=== PATIENT | male | born 1945 | race Caucasian/White ===

== ENCOUNTER 2019-01-13 15:14 | Inpatient (IN) ==
[2019-01-13] MEDS ORDERED: Naloxone 0.4 MG/ML INJ IVP PRN (16:58)
[2019-01-13] MEDS ORDERED: *HR* OxyCODONE/APAP 5/325 TABLET PO PRN (17:03)
[2019-01-13] MEDS ORDERED: D5% in Water 1,000 ML IVC PRN (17:15)
[2019-01-13] MEDS ORDERED: Dextrose Gel 15 GM/37.5 ML TUBE PO PRN ×2 (17:15)
[2019-01-13] MEDS ORDERED: *HR* Dextrose 50 % in Water (Syg) 50 ML SYRINGE IVP PRN (17:15)
[2019-01-13] MEDS ORDERED: Insulin LISPRO 300 UNITS/3 ML VIAL SQ SCH (17:15)
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
[2019-01-13] MEDS ORDERED: traMADol 50 MG TABLET PO PRN (17:44)
[2019-01-13 17:54] LABS: Basophils # 0.1 K/mcL (0.0-0.2); Basophils % 0.4 %; Eosinophils % 0.1 %; Hematocrit 48.8 % (37.5-50.1); Hemoglobin 16.2 g/dL (12.9-16.9); Immature Granulocytes % 0.7 % (0-4); Lymphocytes # 2.5 K/mcL (0.6-4.6); Lymphocytes % 12.2 %; Mean Corpuscular HGB Conc 33.2 g/dL (31.6-35.5); Mean Corpuscular Hemoglobin 28.5 pg (28.0-33.3); Mean Corpuscular Volume 85.9 fL (83.0-100.0); Mean Platelet Volume 9.7 fL (9.4-12.4); Monocytes # 1.9 K/mcL (0.0-1.3); Monocytes % 9.3 %; Neutrophils # 15.6 K/mcL (1.6-8.9); Platelet Count 224 K/mcL (140-400); Red Blood Count 5.68 M/mcL (4.19-5.50); Red Cell Distribution Width 13.7 % (11.5-14.5); Segmented Neutrophils % 77.3 %; White Blood Count 20.2 K/mcL (4.3-11.1)
[2019-01-13] MEDS ORDERED: cefTRIAXone 1,000 MG in Water for inj. (sterile) 10 ML IVP SCH (18:00)
[2019-01-13] MEDS: 0.9 % Sodium Chloride 1,000 ML IVC SCH (18:13)
[2019-01-13 18:14] LABS: BUN/Creatinine Ratio 23 (6-26); Blood Urea Nitrogen 29 mg/dL (8-23); Calcium 8.6 mg/dL (8.6-10.3); Carbon Dioxide 22 mEq/L (23-29); Chloride 101 mEq/L (98-107); Glucose 135 mg/dL (70-105); Osmolality,Calculated 292 (280-300); Potassium 3.7 mEq/L (3.5-5.1); Sodium 137 mEq/L (136-145); eGFR For African Americans > 60 (> 60); eGFR For Non-African Americans 57 (> 60)
[2019-01-13] MEDS ORDERED: Acetaminophen IV 1,000 MG/100 ML INFUS..BTL IVPB ONE (23:51)
[2019-01-14 00:28] LABS: Basophils # 0.1 K/mcL (0.0-0.2); Basophils % 0.3 %; Eosinophils % 0.1 %; Hematocrit 48.1 % (37.5-50.1); Hemoglobin 15.9 g/dL (12.9-16.9); Immature Granulocytes % 0.7 % (0-4); Lymphocytes # 3.5 K/mcL (0.6-4.6); Lymphocytes % 14.5 %; Mean Corpuscular HGB Conc 33.1 g/dL (31.6-35.5); Mean Corpuscular Hemoglobin 28.6 pg (28.0-33.3); Mean Corpuscular Volume 86.5 fL (83.0-100.0); Monocytes # 2.6 K/mcL (0.0-1.3); Monocytes % 10.9 %; Neutrophils # 17.5 K/mcL (1.6-8.9); Platelet Count 225 K/mcL (140-400); Red Blood Count 5.56 M/mcL (4.19-5.50); Red Cell Distribution Width 13.9 % (11.5-14.5); Segmented Neutrophils % 73.5 %; White Blood Count 23.8 K/mcL (4.3-11.1)
[2019-01-14 00:47] LABS: Calcium 8.7 mg/dL (8.6-10.3); Magnesium 1.8 mg/dL (1.6-2.6); Phosphorous 3.1 mg/dL (2.7-4.5); Potassium 3.8 mEq/L (3.5-5.1)
[2019-01-14] MEDS: 0.9 % Sodium Chloride 1,000 ML IVC SCH ×3 (02:22→21:51)
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
[2019-01-14] MEDS ORDERED: *HR* Midazolam HCl 2 MG/2 ML VIAL ONE (08:27)
[2019-01-14] MEDS ORDERED: *HR* FentaNYL (PF) 100 MCG/2 ML VIAL ONE (08:27)
[2019-01-14] MEDS ORDERED: *HR* Propofol 200 MG/20 ML VIAL IVP ONE (08:28)
--- NOTE | 2019-01-14 08:28 | Anesthesia Evaluation PreOp ---
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 Any Significant HX Other Medical History: Renal (kidney sones), Diabetes Type II Anesthesia History: No Prior Anesthetic Complications, Past Anesthesia Alcohol Use: none Drug use: none Medications and Allergies Allergy/AdvReac Type Severity Reaction Status Date / Time zoster vaccine live Allergy Rash Verified 01/13/19 17:11 bee venom protein (honey bee) AdvReac Swelling Verified 01/13/19 17:12 of Lip/Tongue/Throat Tetanus Vaccines and Toxoid AdvReac Swelling Verified 01/13/19 17:11 of the Eye - Meds/Allergy Pre-op Review Medications Reviewed: Yes Allergies Reviewed: Yes Beta Blockers on Current Med List: No Anesthesia Results - Labs 01/14/19 00:19 01/14/19 00:19 Anesthesia Exam Vital Signs/O2 Sat/Glucose, Most Recent Temp Pulse Resp BP Pulse Ox 99.5 F 85 17 102/68 92 01/14/19 06:49 01/14/19 06:49 01/14/19 06:49 01/14/19 06:49 01/14/19 06:49 Blood Glucose* 161 Height: 5'9''/1.75m Weight: 221 lbs/100.4 kg NPO (# of Hours): 8 Pain Scale: 0 Pain Scale Used: Numeric (1 - 10) - HEENT Pupil (Motor): EOMI Mallampati: III Teeth: Normal (multiple chipped teeth) Oral Opening: Greater than 3 - FORM STRIPPER LOC: Oriented FORM STRIPPER Motor: Normal RUE, Normal LUE, Normal RLE, Normal LLE, Normal Face FORM STRIPPER Sensory: Normal: RUE, LUE, RLE, LLE, Face - Cardiac Rhythm: Regular Murmur: None - Pulmonary Breath Sounds: bilateral Clear Respiratory Effort: Symmetrical Anesthesia Assess/Plan ASA Score: 3 Level of consciousness: Cooperative, Oriented, Tranquil Anesthetic Plan: General Monitoring Plan: Standard Monitors Recovery Plan: PACU
[2019-01-14] MEDS ORDERED: *HR* HYDROmorphone (PF) 1 MG/ML SYRINGE IVP PRN (08:39)
[2019-01-14] MEDS ORDERED: *HR* Promethazine 25 MG/ML VIAL IVP PRN (08:39)
--- NOTE | 2019-01-14 08:55 | Internal Med Progress Note ---
Hospitalist Progress Note - Encounter Date of Encounter: 01/14/19 Time of Encounter: 08:50 - Subjective Interval History: No acute events overnight - Exam Vitals: Temp Pulse Resp BP Pulse Ox 99.5 F 85 17 102/68 92 01/14/19 06:49 01/14/19 06:49 01/14/19 06:49 01/14/19 06:49 01/14/19 06:49 Exam: General appearance: Present: A&O X 3, no acute distress Head exam: Present: normocephalic Respiratory exam: Present: CTAB. Absent: accessory muscle use, rales, rhonchi, wheezes Cardiovascular exam: Present: RRR, +S1, +S2. Absent: diastolic murmur, gallop, rubs, systolic murmur GI/Abdominal exam: Soft, NT, ND, +BS Extremities exam: Absent: pedal edema Neurological exam: Present: alert, oriented X3, no focal deficits. Absent: altered - Assessment and Plan (1) Sepsis Current Visit: Yes Status: Acute Assessment and Plan: Pt comes in with tachycardia, leukocytosis of 18 and fevers with multiple WBC in urine and kidney stones Has sepsis likely 2/2 to pyelonephritis and MRSA bacteremia. Continue on vancomycin and ceftriaxone. Obtain 2D echo. repeat blood cultures ID recs appreciated (2) Nephrolithiasis Current Visit: Yes Status: Acute Assessment and Plan: CT abdomen showed 2 stones in left ureter. Continue IV fluids Urology consulted and plan for cystoscopy and stent placement (3) MRSA bacteremia Current Visit: Yes Status: Acute Assessment and Plan: See #1. Continue vancomycin. Obtain echo (4) Acute pyelonephritis Current Visit: Yes Status: Acute Assessment and Plan: See#1. Urology consulted. Continue fluids and antibiotics (5) Acute kidney injury Current Visit: Yes Status: Acute Assessment and Plan: Creatinine was 1.42. Continue IV fluids. Monitor creatinine. No baseline creatinine to compare to determine if he has CKD (6) Diabetes Current Visit: Yes Status: Acute Assessment and Plan: Continue insulin and monitor fingersticks (7) DVT prophylaxis Current Visit: Yes Status: Acute Assessment and Plan: heparin sc - Time Spent with Patient Total time spent is greater than 50% in coordination of care (as documented) at patient's floor/unit and/or counseling patient: Internal Medicine: Result - Labs CBC & Chem 7: 01/14/19 00:19 01/14/19 00:19 Labs: Short CBC 01/13/19 01/14/19 Range/Units 17:20 00:19 WBC 20.2 H 23.8 H (4.3-11.1) K/mcL Hgb 16.2 15.9 (12.9-16.9) g/dL Hct 48.8 48.1 (37.5-50.1) % Plt Count 224 225 (140-400) K/mcL Neutrophils # 15.6 H 17.5 H (1.6-8.9) K/mcL BMP 01/13/19 01/14/19 17:20 00:19 Sodium 137 138 Potassium 3.7 3.8 Chloride 101 98 Carbon Dioxide 22 L 29 BUN 29 H 26 H Creatinine 1.25 1.46 H Glucose 135 H 138 H Calcium 8.6 8.7 Consult Discharge Plan - Plan Referrals: Gee Lyles MD [Primary Care Provider] - (1) Sepsis Qualifiers: Sepsis type: methicillin resistant Staphylococcus aureus Qualified Code(s): A41.02 - Sepsis due to Methicillin resistant Staphylococcus aureus (6) Diabetes Qualifiers: Diabetes mellitus type: type 2 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
[2019-01-14] MEDS ORDERED: Aspirin 81 MG TAB.CHEW PO SCH (09:00)
[2019-01-14] MEDS ORDERED: Lidocaine -MPF 2% 2 ML VIAL ONE (09:02)
[2019-01-14] MEDS ORDERED: Ondansetron 4 MG/2 ML VIAL ONE (09:02)
--- NOTE | 2019-01-14 09:20 | Operative Note ---
Date of procedure: 01/14/19 Pre-op diagnosis: left ureteral stones and fever Post-op diagnosis: same Procedure: Cystoscopy and left 6 x 26 cm ureteral stent placement Anesthesia: GETA Surgeon: Roque Molina Was there an assistant news director present: No Estimated blood loss (cc): 0 Specimen: none Condition: stable Disposition: PACU Procedure in Detail: Patient was prepped and draped in normal sterile fashion. Timeout procedure performed. I then inserted the cystoscope into the patient's bladder. The bladder showed marked inflammation. I was then able to cannulate the left ureteral orifice using a Glidewire. At this point I then was able to place a 6 x 26 cm stent with good curl seen in the left kidney and in the bladder. Patient was taken to PACU in stable condition after the bladder was drained.
--- NOTE | 2019-01-14 09:50 | Anesthesia Evaluation Post Op ---
Date of Encounter: 01/14/19 Time of Encounter: 09:50 - Lungs Lungs: Clear Ascult./Percussion - Airway Airway: Non-obstructed - Cardiovascular Regular Rate - Mental Status Mental Status: Alert & Oriented, Answers Appropriately - Pain Pain Scale: 0 Pain Scale used: Numeric (1 - 10) - Nausea Vomiting Nausea Vomiting: Not Present - Hydration Hydration: Tolerates oral liquids - Discharge PostOp Status: Transfer Patient to floor
[2019-01-14] MEDS ORDERED: Naloxone 0.4 MG/ML INJ IVP PRN (10:02)
[2019-01-14] MEDS ORDERED: traMADol 50 MG TABLET PO PRN (10:02)
[2019-01-14] MEDS ORDERED: D5% in Water 1,000 ML IVC PRN (10:02)
[2019-01-14] MEDS ORDERED: *HR* Dextrose 50 % in Water (Syg) 50 ML SYRINGE IVP PRN (10:02)
[2019-01-14] MEDS ORDERED: Dextrose Gel 15 GM/37.5 ML TUBE PO PRN ×2 (10:02)
[2019-01-14] MEDS ORDERED: *HR* OxyCODONE/APAP 5/325 TABLET PO PRN (10:02)
[2019-01-14 10:56] LABS: Acinetobacter baumannii by PCR Not Detected (Not Detect); Candida albicans by PCR Not Detected (Not Detect); Candida glabrata by PCR Not Detected (Not Detect); Candida krusei by PCR Not Detected (Not Detect); Candida parapsilosis by PCR Not Detected (Not Detect); Candida tropicalis by PCR Not Detected (Not Detect); Enterobacter cloacae Cmplx PCR Not Detected (Not Detect); Enterobacteriaceae by PCR Not Detected (Not Detect); Enterococcus by PCR Not Detected (Not Detect); Escherichia coli by PCR Not Detected (Not Detect); Klebsiella oxytoca by PCR Not Detected (Not Detect); Klebsiella pneumoniae by PCR Not Detected (Not Detect); Proteus by PCR Not Detected (Not Detect); Pseudomonas aeruginosa by PCR Not Detected (Not Detect); Serratia marcescens by PCR Not Detected (Not Detect); Staphylococcus aureus by PCR DETECTED (Not Detect); Staphylococcus by PCR DETECTED (Not Detect); Streptococcus agalactiae(B)PCR Not Detected (Not Detect); Streptococcus by PCR Not Detected (Not Detect); Streptococcus pneumoniae PCR Not Detected (Not Detect); Streptococcus pyogenes (A) PCR Not Detected (Not Detect); mecA Methicillin-Resist Gene DETECTED (Not Detect)
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
[2019-01-14] MEDS: Insulin LISPRO 300 UNITS/3 ML VIAL SQ SCH ×2 (12:11→16:23)
[2019-01-14 12:59] LABS: Estimated Average Glucose 180 mg/dl
[2019-01-14] MEDS: cefTRIAXone 2,000 MG in Water for inj. (sterile) 20 ML IVP SCH (17:33)
[2019-01-14] MEDS ORDERED: cefTRIAXone 1,000 MG in Water for inj. (sterile) 10 ML IVP SCH (18:00)
[2019-01-14] MEDS ORDERED: Acetaminophen 325 MG TABLET PO ONE (23:14)
[2019-01-15] MEDS: 0.9 % Sodium Chloride 1,000 ML IVC SCH ×2 (04:34→16:47)
[2019-01-15 06:22] LABS: BUN/Creatinine Ratio 19 (6-26); Blood Urea Nitrogen 21 mg/dL (8-23); Calcium 7.9 mg/dL (8.6-10.3); Carbon Dioxide 22 mEq/L (23-29); Chloride 105 mEq/L (98-107); Glucose 92 mg/dL (70-105); Magnesium 1.8 mg/dL (1.6-2.6); Osmolality,Calculated 287 (280-300); Phosphorous 2.3 mg/dL (2.7-4.5); Potassium 3.7 mEq/L (3.5-5.1); Sodium 137 mEq/L (136-145); eGFR For African Americans > 60 (> 60); eGFR For Non-African Americans > 60 (> 60)
[2019-01-15 07:23] LABS: Basophils # 0.1 K/mcL (0.0-0.2); Basophils % 0.7 %; Eosinophils # 0.3 K/mcL (0.0-0.6); Eosinophils % 1.8 %; Hematocrit 46.2 % (37.5-50.1); Hemoglobin 15.3 g/dL (12.9-16.9); Immature Granulocytes % 0.7 % (0-4); Lymphocytes % 18.4 %; Mean Corpuscular HGB Conc 33.1 g/dL (31.6-35.5); Mean Corpuscular Hemoglobin 28.7 pg (28.0-33.3); Mean Corpuscular Volume 86.5 fL (83.0-100.0); Mean Platelet Volume 10.3 fL (9.4-12.4); Monocytes # 1.7 K/mcL (0.0-1.3); Monocytes % 10.6 %; Platelet Count 196 K/mcL (140-400); Red Blood Count 5.34 M/mcL (4.19-5.50); Red Cell Distribution Width 13.6 % (11.5-14.5); Segmented Neutrophils % 67.8 %; White Blood Count 16.3 K/mcL (4.3-11.1)
[2019-01-15] MEDS: Insulin LISPRO 300 UNITS/3 ML VIAL SQ SCH ×3 (07:30→16:48)
[2019-01-15] MEDS: Aspirin 81 MG TAB.CHEW PO SCH (09:49)
--- NOTE | 2019-01-15 09:54 | Internal Med Progress Note ---
Hospitalist Progress Note - Encounter Date of Encounter: 01/15/19 Time of Encounter: 09:00 - Subjective Interval History: No acute events overnight - Exam Vitals: Temp Pulse Resp BP Pulse Ox 98.2 F 84 18 124/70 96 01/15/19 06:39 01/15/19 06:39 01/15/19 06:39 01/15/19 06:39 01/15/19 06:39 Exam: General appearance: Present: A&O X 3, no acute distress Head exam: Present: normocephalic Respiratory exam: Present: CTAB. Absent: accessory muscle use, rales, rhonchi, wheezes Cardiovascular exam: Present: RRR, +S1, +S2. Absent: diastolic murmur, gallop, rubs, systolic murmur GI/Abdominal exam: Soft, NT, ND, +BS Extremities exam: Absent: pedal edema Neurological exam: Present: alert, oriented X3, no focal deficits. Absent: altered - Assessment and Plan (1) Sepsis Current Visit: Yes Status: Acute Assessment and Plan: Pt comes in with tachycardia, leukocytosis of 18 and fevers with multiple WBC in urine and kidney stones Has sepsis likely 2/2 to MRSA bacteremia. Continue on vancomycin and ceftriaxone. Obtain 2D echo. repeat blood cultures ID recs appreciated (2) Nephrolithiasis Current Visit: Yes Status: Acute Assessment and Plan: CT abdomen showed 2 stones in left ureter. Continue IV fluids Urology consulted and patient is s/p cystoscopy and stent placement (3) MRSA bacteremia Current Visit: Yes Status: Acute Assessment and Plan: See #1. Continue vancomycin. Obtain echo (4) Acute kidney injury Current Visit: Yes Status: Acute Assessment and Plan: Creatinine was 1.42. Continue IV fluids. Monitor creatinine. No baseline cr eatinine to compare to determine if he has CKD Resolved with fluids (5) Diabetes Current Visit: Yes Status: Acute Assessment and Plan: Continue insulin and monitor fingersticks (6) DVT prophylaxis Current Visit: Yes Status: Acute Assessment and Plan: heparin sc - Time Spent with Patient Total time spent is greater than 50% in coordination of care (as documented) at patient's floor/unit and/or counseling patient: Internal Medicine: Result - Labs CBC & Chem 7: 01/15/19 07:08 01/15/19 05:28 Labs: Short CBC 01/15/19 Range/Units 07:08 WBC 16.3 H (4.3-11.1) K/mcL Hgb 15.3 (12.9-16.9) g/dL Hct 46.2 (37.5-50.1) % Plt Count 196 (140-400) K/mcL Neutrophils # 11.0 H (1.6-8.9) K/mcL BMP 01/15/19 05:28 Sodium 137 Potassium 3.7 Chloride 105 Carbon Dioxide 22 L BUN 21 Creatinine 1.10 Glucose 92 Calcium 7.9 L Consult Discharge Plan - Plan Referrals: Gee Lyles MD [Primary Care Provider] - (1) Sepsis Qualifiers: Sepsis type: methicillin resistant Staphylococcus aureus Qualified Code(s): A41.02 - Sepsis due to Methicillin resistant Staphylococcus aureus (5) Diabetes Qualifiers: Diabetes mellitus type: type 2 Diabetes mellitus skilled nursing insulin use: without skilled nursing use Diabetes mellitus complication status: without complication Qualified Code(s): E11.9 - Type 2 diabetes mellitus without complications
--- NOTE | 2019-01-15 10:02 | Urology Progress Note ---
Date of Encounter: 01/15/19 Time of Encounter: 10:00 - Assessment and Plan (1) Nephrolithiasis Current Visit: Yes Status: Acute Assessment and plan: Patient will be scheduled for left ureteroscopic stone extraction in 2-3 weeks. No need for follow-up in urology office (2) Sepsis Current Visit: Yes Status: Acute Assessment and plan: Continue with treatment per infectious disease. Qualifiers: Sepsis type: methicillin resistant Staphylococcus aureus Qualified Code(s): A41.02 - Sepsis due to Methicillin resistant Staphylococcus aureus Progress Note Narrative: Patient seen this morning. Patient feeling better today states he had a worst a yesterday. Patient's blood cultures positive 2 for gram-positive cocci. Infectious disease on board. Objective Initial Vital Signs Temp Pulse Resp BP Pulse Ox 100.2 F H 111 18 130/73 91 01/13/19 17:23 01/13/19 17:23 01/13/19 17:23 01/13/19 17:23 01/13/19 17:23 General/Neuological: alert and oriented x 3 Eyes: normal pupils, non-icteric Neck: no lymphadenopathy noted, supple to touch ABD: soft, nontender, no masses palpated, good bowel sounds Back: no pain on percussion bilaterally Skin: no rashes noted Musculoskeletal: normal gait, FROMx4 - Labs 01/15/19 07:08 01/15/19 05:28 Diabetes panel 01/13/19 01/15/19 Range/Units 17:20 05:28 Sodium 137 (136-145) mEq/L Potassium 3.7 (3.5-5.1) mEq/L Chloride 105 (98-107) mEq/L Carbon Dioxide 22 L (23-29) mEq/L BUN 21 (8-23) mg/dL Creatinine 1.10 (0.70-1.30) mg/dL Glucose 92 (70-105) mg/dL Hemoglobin A1c 7.9 H ( - 5.6) % Calcium 7.9 L (8.6-10.3) mg/dL Calcium panel 01/15/19 Range/Units 05:28 Calcium 7.9 L (8.6-10.3) mg/dL Phosphorus 2.3 L (2.7-4.5) mg/dL Pituitary panel 01/15/19 Range/Units 05:28 Sodium 137 (136-145) mEq/L Potassium 3.7 (3.5-5.1) mEq/L Chloride 105 (98-107) mEq/L Carbon Dioxide 22 L (23-29) mEq/L BUN 21 (8-23) mg/dL Creatinine 1.10 (0.70-1.30) mg/dL Glucose 92 (70-105) mg/dL Calcium 7.9 L (8.6-10.3) mg/dL Adrenal panel 01/15/19 Range/Units 05:28 Sodium 137 (136-145) mEq/L Potassium 3.7 (3.5-5.1) mEq/L Chloride 105 (98-107) mEq/L Carbon Dioxide 22 L (23-29) mEq/L BUN 21 (8-23) mg/dL Creatinine 1.10 (0.70-1.30) mg/dL Glucose 92 (70-105) mg/dL Calcium 7.9 L (8.6-10.3) mg/dL Consult Discharge Plan - Plan Referrals: Gee Lyles MD [Primary Care Provider] -
--- NOTE | 2019-01-15 13:42 | Infectious Disease Progress No ---
ID Progress Note Date of Encounter: 01/15/19 Time of Encounter: 12:05 - Subjective Subjective: Patient seen and examined. No acute events noted overnight. Patient states overall he feels pretty well this morning. Reports some fevers overnight, but denies chills or rigors. Denies chest pain, shortness of breath, or cough. Denies nausea, vomiting, diarrhea, or constipation. Denies abdominal pain. Denies back or flank pain. Does report some dysuria. Denies oral thrush or skin rashes. - Objective CBC & Chem 7: 01/16/19 04:45 01/16/19 04:45 - Exam Vitals: Temp Pulse Resp BP Pulse Ox 98.2 F 98 16 157/85 96 01/15/19 11:33 01/15/19 11:33 01/15/19 11:33 01/15/19 11:33 01/15/19 11:33 Exam: Head: Atraumatic, normal inspection, normocephalic. Eye: EOMI, PERRLA, no scleral icterus noted. No subconjunctival hemorrhage noted. ENT: Mucous membranes moist. No odontogenic infection noted. Neck: Normal inspection, no meningismus. Respiratory: Clear to auscultation. No rales, respiratory distress, rhonchi, or wheezes noted. Cardiovascular: Regular rate and rhythm, S1 and S2 audible. No murmurs, rubs, or gallops. GI: Soft, nondistended, normal bowel sounds. Extremities:No joint swelling, pedal edema, or tenderness noted. Back: Normal inspection. No vertebral tenderness noted. No CVA tenderness noted. Neurological: Alert, oriented 3, no focal deficits. Psychiatric: normal affect, normal mood. Skin: Dry, intact, warm. Normal color. No rashes. No endocarditis stigmata noted. - Assessment and Plan (1) Sepsis Current Visit: Yes Status: Acute The patient has three sepsis criteria. Likely secondary to pyelonephritis and bacteremia. WBC remains elevated. Tachycardia resolved. Afebrile this morning. Blood cultures drawn at [place] are postitive 1/2 for GPC. Blood cultures drawn 01/13/19 at [facility] are positive 2/2 for GPC, PCR picked up MRSA. Repeat blood cultures drawn 01/15/19 are pending 2 sets. Qualifiers: Sepsis type: methicillin resistant Staphylococcus aureus Qualified Code(s): A41.02 - Sepsis due to Methicillin resistant Staphylococcus aureus SNOMED Code(s): 13436117 (2) Bacteremia Current Visit: Yes Status: Acute Causative organism: MRSA. Source: Unclear. Index of suspicion that the UTI and kidney stones are actually an incidental finding and are not related to the MRSA bacteremia since the urine culture from [place] is not growing anything at this point. The patient does not have any open sores or lesions. He is not an IV drug user. He does report several mosquito bites that he has been scratching, but denies having any of them appear infected and I do not see any on exam, but the patient is technically immunocompromised due to asplenia. Blood cultures drawn 01/13/19 at [place] +1 out of 2 sets for GPC's. Blood cultures drawn 01/13/19 at [facility] are +2 out of 2 sets for GPC's. The PCR did pickling grader MRSA. Repeat blood cultures drawn 01/15/19 are intact sets. No endocarditis stigmata noted. No prosthetic hardware or pacemaker. Rheumatoid factor elevated. Transthoracic echocardiogram negative for valvular vegetations. The patient has one major and 2 minor Modified Trinh's criteria. Currently on IV Vancomycin. SNOMED Code(s): 2433245 (3) Acute pyelonephritis Current Visit: Yes Status: Acute Causative organism: Unclear, possibly MRSA given blood culture results. The patient reported left flank pain on admission, but no pyelonephritis noted on CT. Urology consulted. Status post cystoscopy with left ureteral stent placement 01/14/[address] Molina. Urine culture was mixed organisms. Currently on Vanc and Rocephin. SNOMED Code(s): 00874318 (4) Acute kidney injury Current Visit: Yes Status: Resolved Likely secondary to sepsis and hydronephrosis. Serum creatinine normalized. Continue to trend. Dose-adjust medications and avoid nephrotoxins as able. SNOMED Code(s): 73923918, 57979837 (5) Nephrolithiasis Current Visit: Yes Status: Acute Noted on CT scan at [place]. Urology consult. Status post cystoscopy with left ureteral stent placement 01/14/19. Planned for staged removal of kidney stone at some point. SNOMED Code(s): 64453359 (6) Enlarged prostate Current Visit: Yes Status: Chronic Follows with [facility]. SNOMED Code(s): 161771579 (7) Diabetes Current Visit: Yes Status: Acute Recommend aggressive glucose monitoring and control. Management per the primary team. Qualifiers: Diabetes mellitus type: type 2 Diabetes mellitus termite control representative insulin use: without senior living use Diabetes mellitus complication status: without complication Qualified Code(s): E11.9 - Type 2 diabetes mellitus without complications SNOMED Code(s): 70558044 - Recommendations Recommendations: Await repeat blood cultures. Await final ID and sensitivities on blood cultures. Recommend JARVIS prior to discharge. Continue vancomycin IV. Pharmacy to dose. Goal trough approximately 15. Continue Rocephin 2 g IV daily. Duration of treatment depends on the clinical picture. Monitor renal function and for drug toxicity and dose adjust antibiotics. Contact precautions per hospital policy. Avoid insertion of long-term IV access until repeat blood cultures are negative for 48 hours. services program manager to assist with discharge planning. Consult Discharge Plan - Plan Referrals: Gee Lyles MD [Primary Care Provider] - - Attending Attestation I have personally performed a face to face evaluation on this patient. I have reviewed and agree with the care plan. History and Exam by me shows: Assessment and plan: 1.Sepsis 2.MRSA bacteremia 2/2 sets positive 01/13/2019 source not clear 3.Acute pyelonephritis causative organism not clear 4.Acute kidney injury 5.Nephrolithiasis 6.Large prostate 7.Diabetes mellitus type 2 Recommendations Repeat blood cultures 2 sets in the morning. Check rheumatoid factor. Await urine culture to finalize. Await final ID and sensitivities on blood cultures. Get transthoracic echocardiogram. Will likely need a JARVIS prior to discharge. Continue vancomycin IV. Pharmacy to dose. Goal trough approximately 15. Continue Rocephin, but increase to 2 g IV daily. Duration of treatment depends on the clinical picture. One of her renal function and for drug toxicity and dose adjust antibiotics. Contact precautions per hospital policy.
[2019-01-15] MEDS: cefTRIAXone 2,000 MG in Water for inj. (sterile) 20 ML IVP SCH (18:10)
[2019-01-16] MEDS: 0.9 % Sodium Chloride 1,000 ML IVC SCH ×3 (02:59→16:25)
[2019-01-16 05:09] LABS: Basophils # 0.1 K/mcL (0.0-0.2); Basophils % 0.6 %; Eosinophils # 0.2 K/mcL (0.0-0.6); Eosinophils % 1.5 %; Hematocrit 45.1 % (37.5-50.1); Immature Granulocytes % 0.5 % (0-4); Lymphocytes # 2.5 K/mcL (0.6-4.6); Lymphocytes % 18.5 %; Mean Corpuscular HGB Conc 33.3 g/dL (31.6-35.5); Mean Corpuscular Hemoglobin 28.8 pg (28.0-33.3); Mean Corpuscular Volume 86.7 fL (83.0-100.0); Mean Platelet Volume 10.1 fL (9.4-12.4); Monocytes # 1.2 K/mcL (0.0-1.3); Neutrophils # 9.5 K/mcL (1.6-8.9); Platelet Count 227 K/mcL (140-400); Red Cell Distribution Width 13.4 % (11.5-14.5); Segmented Neutrophils % 69.9 %; White Blood Count 13.5 K/mcL (4.3-11.1)
[2019-01-16 05:29] LABS: BUN/Creatinine Ratio 22 (6-26); Blood Urea Nitrogen 22 mg/dL (8-23); Calcium 8.4 mg/dL (8.6-10.3); Carbon Dioxide 22 mEq/L (23-29); Chloride 105 mEq/L (98-107); Glucose 150 mg/dL (70-105); Magnesium 1.7 mg/dL (1.6-2.6); Osmolality,Calculated 288 (280-300); Phosphorous 2.1 mg/dL (2.7-4.5); Potassium 3.8 mEq/L (3.5-5.1); Sodium 136 mEq/L (136-145); eGFR For African Americans > 60 (> 60); eGFR For Non-African Americans > 60 (> 60)
--- NOTE | 2019-01-16 08:54 | Internal Med Progress Note ---
<Ilia Lee - Last Filed: 01/16/19 16:40> Hospitalist Progress Note - Encounter Date of Encounter: 01/16/19 Time of Encounter: 09:00 - Subjective Interval History: Patient presented to ED on 01/13/19 for flank pain and chills. Hx of nephrolithiasis, diabetes, HTN. Was found on CT at another hospital to have L distal ureteral stones with proximal hydronephrosis. He met SIRS criteria and was admitted with SEPSIS 2/2 pyelonephritis. blood cultures 01/13/19 grew MRSA and he was treated with Vanc and ceftriaxone. He received a cystosocpy and L ureteral stent. stone extraction to be completed in 2 weeks. Patient feels the same as yesterday. Is awaiting his JARVIS - Exam Vitals: Temp Pulse Resp BP Pulse Ox 98.7 F 98 16 142/72 94 01/16/19 06:21 01/16/19 06:21 01/16/19 06:21 01/16/19 06:21 01/16/19 06:21 Exam: General: vitals noted. no acute distress. Skin: normal turgor. no obvious rash eyes: no icterus. moist conjunctivae. cardio: tachycardic. regular rhythm. no murmur, gallop or rub noticed. resp: R posterior basilar crackles - wet. non-labored breathing. GI: obese. normal anatomy looks distended. bowel sounds present. nontender to palpation. no rebound tenderness, gaurding, or fluid wave. : Stefano's negative extremities: no edema. no clubbing neuro: no focal deficits noted. can move all extremities. psych: appropriate mood and behavior. answers questions. - Assessment and Plan (1) Sepsis Current Visit: Yes Status: Acute Assessment and Plan: -likely 2/2 pyelonephritis -SIRS 01/13/19: 101.4 temp; 104 heart rate; respiratory rate 19; WBC 20.2 -lactic acid WNL -1L bolus normal saline given 01/14/19 -normal saline 1L q8 hours -cultures 01/13/19 urine clean catch: mixed organisms 01/13/19 blood X2: MRSA 01/14/19 blood X1: gram positive cocci 01/15/19 blood x2: pending -TTE negative for vegetations. -JARVIS preliminary result showed no vegetations but suboptimal study -Vancomycin and ceftriaxone day 2 (2) Acute pyelonephritis Current Visit: Yes Status: Acute Assessment and Plan: -likely 2/2 stasis from nephrolithiasis -patient had flank pain, chills -urology note reports CT showing L distal ureteral stones with proximal hydronephrosis at [facility] -01/14/19: cystoscopy and L ureteral stent placement. -stone extraction planned for the future -antibiotics as above -naloxone 0.4mg IV prn and oxy/aceta 5/325 q6hr prn and tramadol and acetaminophen for pain. no oxy since 01/14/19. no naloxone or tramadol. one dose 50 mcg fentanyl today. (3) Enlarged prostate Current Visit: Yes Status: Chronic Assessment and Plan: BPH -tamsulosin - Time Spent with Patient Total time spent is greater than 50% in coordination of care (as documented) at patient's floor/unit and/or counseling patient: Internal Medicine: Result - Labs CBC & Chem 7: 01/16/19 04:45 01/16/19 04:45 Labs: Short CBC 01/16/19 Range/Units 04:45 WBC 13.5 H (4.3-11.1) K/mcL Hgb 15.0 (12.9-16.9) g/dL Hct 45.1 (37.5-50.1) % Plt Count 227 (140-400) K/mcL Neutrophils # 9.5 H (1.6-8.9) K/mcL BMP 01/16/19 04:45 Sodium 136 Potassium 3.8 Chloride 105 Carbon Dioxide 22 L BUN 22 Creatinine 1.02 Glucose 150 H Calcium 8.4 L - Impressions Impressions Echocardiogram 01/14/19 10:55 Impressions: LVEF 60%. Indeterminate diastolic function. Normal right ventricular structure and function. No significant valvular dysfunction. No pulmonary hypertension. Left Ventricular Wall Motion: Rest Echo Findings All wall segments showed normal motion. Findings: Study Quality * Technically adequate exam. ECG Findings * Normal sinus rhythm. Left Ventricle * LVEF 60%. * Normal LV chamber size, wall thickness and function. * Indeterminate diastolic function. Right Ventricle * Normal right ventricular structure and function. Left Atrium * Left atrium is not optimally visualized. Right Atrium * Normal right atrial size. Mitral Valve * No mitral stenosis. * No mitral regurgitation. * Mildly calcified mitral valve leaflets. Aortic Valve * Trileaflet aortic valve. * Mildly thickened/sclerotic aortic valve leaflets. * No aortic stenosis. * Trace aortic regurgitation. Tricuspid Valve * Tricuspid valve not well visualized. * No tricuspid regurgitation. Pulmonic Valve * Pulmonic valve is not well visualized. * No pulmonic stenosis. * No pulmonic regurgitation. Pulmonary Artery * Pulmonary artery not well visualized. Aorta * Normally sized aortic root. Pericardium * There is no pericardial effusion present. Interatrial Septum * Interatrial septum not well evaluated. IVC * The IVC is not well evaluated. Consult Discharge Plan - Plan Referrals: Gee Lyles MD [Primary Care Provider] - <Josselyn Mcfadden - Last Filed: 01/16/19 17:02> Hospitalist Progress Note - Encounter Date of Encounter: 01/16/19 - Exam Vitals: Temp Pulse Resp BP Pulse Ox 99.6 F 99 16 130/81 92 01/16/19 14:39 01/16/19 14:39 01/16/19 14:39 01/16/19 14:39 01/16/19 14:39 - Assessment and Plan (1) Nephrolithiasis Current Visit: Yes Status: Acute (2) Acute kidney injury Current Visit: Yes Status: Resolved (3) Diabetes Current Visit: Yes Status: Acute (4) Sepsis Current Visit: Yes Status: Acute (5) DVT prophylaxis Current Visit: Yes Status: Acute (6) MRSA bacteremia Current Visit: Yes Status: Acute - Time Spent with Patient Total time spent is greater than 50% in coordination of care (as documented) at patient's floor/unit and/or counseling patient: Internal Medicine: Result - Labs CBC & Chem 7: 01/16/19 04:45 01/16/19 04:45 Labs: Short CBC 01/16/19 Range/Units 04:45 WBC 13.5 H (4.3-11.1) K/mcL Hgb 15.0 (12.9-16.9) g/dL Hct 45.1 (37.5-50.1) % Plt Count 227 (140-400) K/mcL Neutrophils # 9.5 H (1.6-8.9) K/mcL BMP 01/16/19 04:45 Sodium 136 Potassium 3.8 Chloride 105 Carbon Dioxide 22 L BUN 22 Creatinine 1.02 Glucose 150 H Calcium 8.4 L - Attending Attestation I examined this patient and my medical decision-making was reviewed with the Resident Physician Dr Lee. I agree with the documented findings, disposition and treatment plan as described except to the extent set forth below. Mr Marques is admitted with kidney stone s/p stent and MRSA bacteremia awake, denies fevers, chills, n/v. has no bladder pain or urinary hesitancy. tea colored urine and urinary urgency present. gen- alert, awake,appears stated age cv- reg rate and rhythm, normal s1,s2, no murmurs appreciated lungs- ctabl, no wheezing, rhonchi or crackles, normal resp effort on room air abd- soft, non tender, non distended, + bs gu- tea colored urine in bedside urinal neuro- AAOx3 Sepsis 2/2 pyelonephritis and bacteremia- technically still meets with wbc 13.5 and HR in 90s + infectious process, clinically greatly improved -will cont abx, monitor off IVFs, appreciate ID input MRSA bacteremia- cont vanc and dc rocephin as per ID, will require outpt IV abx, NO PICC until 01/15 cxs remain neg for at least 48 hrs, JARVIS prelim by cards neg for veg, subopitmal study Pyelopnephritis w Nephrolithiasis s/p L ureteral stent 01/14- as above, will get outpt stone extraction in 2-3 weeks Hypophosphatemia- PO repletion and fu in am vte ppx scds <Ilia Lee - Last Filed: 01/16/19 16:40> (1) Sepsis Qualifiers: Sepsis type: methicillin resistant Staphylococcus aureus Qualified Code(s): A41.02 - Sepsis due to Methicillin resistant Staphylococcus aureus <Josselyn Mcfadden - Last Filed: 01/16/19 17:02> (3) Diabetes Qualifiers: Diabetes mellitus type: type 2 Diabetes mellitus ccu nurse insulin use: without residential use Diabetes mellitus complication status: without complication Qualified Code(s): E11.9 - Type 2 diabetes mellitus without complications (4) Sepsis Qualifiers: Sepsis type: methicillin resistant Staphylococcus aureus Qualified Code(s): A41.02 - Sepsis due to Methicillin resistant Staphylococcus aureus
[2019-01-16] MEDS: Insulin LISPRO 300 UNITS/3 ML VIAL SQ SCH ×3 (09:11→17:53)
[2019-01-16] MEDS: Aspirin 81 MG TAB.CHEW PO SCH (09:11)
--- NOTE | 2019-01-16 11:52 | Infectious Disease Progress No ---
ID Progress Note Date of Encounter: 01/16/19 Time of Encounter: 11:50 - Subjective Subjective: Patient seen and examined. No acute events noted overnight. Patient states overall he feels pretty well this morning. Denies fevers, chills or rigors. Denies chest pain, shortness of breath, or cough. Denies nausea, vomiting, diarrhea, or constipation. Denies abdominal pain. Denies back or flank pain. Does report some dysuria, improved. Denies oral thrush or skin rashes. - Objective CBC & Chem 7: 01/17/19 07:04 01/17/19 07:04 - Exam Vitals: Temp Pulse Resp BP Pulse Ox 99.1 F 91 16 124/78 94 01/16/19 10:20 01/16/19 10:20 01/16/19 10:20 01/16/19 10:20 01/16/19 10:20 Exam: Head: Atraumatic, normal inspection, normocephalic. Eye: EOMI, PERRLA, no scleral icterus noted. No subconjunctival hemorrhage noted. ENT: Mucous membranes moist. No odontogenic infection noted. Neck: Normal inspection, no meningismus. Respiratory: Clear to auscultation. No rales, respiratory distress, rhonchi, or wheezes noted. Cardiovascular: Regular rate and rhythm, S1 and S2 audible. No murmurs, rubs, or gallops. GI: Soft, nondistended, normal bowel sounds. Extremities:No joint swelling, pedal edema, or tenderness noted. Back: Normal inspection. No vertebral tenderness noted. No CVA tenderness noted. Neurological: Alert, oriented 3, no focal deficits. Psychiatric: normal affect, normal mood. Skin: Dry, intact, warm. Normal color. No rashes. No endocarditis stigmata noted. - Assessment and Plan (1) Sepsis Current Visit: Yes Status: Acute The patient has three sepsis criteria. Likely secondary to pyelonephritis and bacteremia. WBC improved. Tachycardia resolved. Afebrile. Blood cultures drawn at [facility] are postitive 1/2 for GPC. Blood cultures drawn 01/13/19 at [facility] are positive 2/2 for MRSA. Repeat blood cultures drawn 01/15/19 are NGTD 2 sets. Qualifiers: Sepsis type: methicillin resistant Staphylococcus aureus Qualified Code(s): A4.02 - Sepsis due to Methicillin resistant Staphylococcus aureus SNOMED Code(s): 46799522 (2) Bacteremia Current Visit: Yes Status: Acute Causative organism: MRSA. Source: Unclear. Index of suspicion that the UTI and kidney stones are actually an incidental finding and are not related to the MRSA bacteremia since the urine culture from [place] is not growing anything at this point. The patient does not have any open sores or lesions. He is not an IV drug user. He does report several mosquito bites that he has been scratching, but denies having any of them appear infected and I do not see any on exam, but the patient is technically immunocompromised due to asplenia. Blood cultures drawn 01/13/19 at [facility] +1 out of 2 sets for GPC's. Blood cultures drawn 01/13/19 at [facility] are +2 out of 2 sets for MRSA. Repeat blood cultures drawn 01/15/19 are NGTD x 2 sets. No endocarditis stigmata noted. No prosthetic hardware or pacemaker. Rheumatoid factor elevated. Transthoracic echocardiogram negative for valvular vegetations. JARVIS scheduled for later today. The patient has one major and 2 minor Modified Trinh's criteria. Currently on IV Vancomycin. SNOMED Code(s): 5088408 (3) Acute pyelonephritis Current Visit: Yes Status: Acute Causative organism: Unclear, possibly MRSA given blood culture results. The patient reported left flank pain on admission, but no pyelonephritis noted on CT. Urology consulted. Status post cystoscopy with left ureteral stent placement 01/14/[address] Molina. Urine culture was mixed organisms. Currently on Vanc and Rocephin. SNOMED Code(s): 07060824 (4) Acute kidney injury Current Visit: Yes Status: Resolved Likely secondary to sepsis and hydronephrosis. Serum creatinine normalized. Continue to trend. Dose-adjust medications and avoid nephrotoxins as able. SNOMED Code(s): 70048956, 66125596 (5) Nephrolithiasis Current Visit: Yes Status: Acute Noted on CT scan at [facility]. Urology consult. Status post cystoscopy with left ureteral stent placement 01/14/19. Planned for staged removal of kidney stone at some point. SNOMED Code(s): 36123198 (6) Enlarged prostate Current Visit: Yes Status: Chronic Follows with [facility]. SNOMED Code(s): 067502159 (7) Diabetes Current Visit: Yes Status: Acute Recommend aggressive glucose monitoring and control. Management per the primary team. Qualifiers: Diabetes mellitus type: type 2 Diabetes mellitus long-term insulin use: without exterminator use Diabetes mellitus complication status: without complication Qualified Code(s): E11.9 - Type 2 diabetes mellitus without complications SNOMED Code(s): 59488220 - Recommendations Recommendations: Await repeat blood cultures. Await final ID and sensitivities on blood cultures. Recommend JARVIS prior to discharge. Continue vancomycin IV. Pharmacy to dose. Goal trough approximately 15. Discontinue Rocephin. Duration of treatment depends on the clinical picture. Monitor renal function and for drug toxicity and dose adjust antibiotics. Contact precautions per hospital policy. Avoid insertion of long-term IV access until repeat blood cultures are negative for 48 hours. manager social services to assist with discharge planning. Consult Discharge Plan - Plan Additional Instructions: -you have bacteria in your blood and an infection in your urinary tract -finish antibiotics to completion -f/u with urology for stone removal in around 2 weeks -thank you Referrals: Gee Lyles MD [Primary Care Provider] - Prescriptions: DAPTOmycin [Daptomycin] 800 mg IV DAILY #11 vial - Attending Attestation I have personally performed a face to face evaluation on this patient. I have reviewed and agree with the care plan. History and Exam by me shows: Assessment and plan: 1.Sepsis 2.MRSA bacteremia 2/2 sets positive 01/13/2019 source not clear 3.Acute pyelonephritis causative organism not clear 4.Acute kidney injury 5.Nephrolithiasis 6.Large prostate 7.Diabetes mellitus type 2 Recommendations: JARVIS negative for endocarditis By definition this is on complicated MRSA bacteremia so we will treat with vancomycin for 2 weeks from first negative culture DC Rocephin Continue contact precautions Monitor for drug toxicity
[2019-01-16] MEDS ORDERED: *HR* Midazolam HCl 5 MG/5 ML VIAL IVP PRN ×2 (12:25→12:37)
[2019-01-16] MEDS ORDERED: Lidocaine Viscous Oral Soln 15 ML SOLUTION MM PRN ×2 (12:25→12:37)
[2019-01-16] MEDS ORDERED: 0.9 % Sodium Chloride 500 ML IVC ONE ×2 (12:25→12:37)
[2019-01-16] MEDS ORDERED: *HR* FentaNYL (PF) 100 MCG/2 ML VIAL IVP PRN ×2 (12:25→12:37)
--- NOTE | 2019-01-16 14:15 | Event Note ---
Date of Encounter: 01/16/19 Time of Encounter: 14:15 - Cardiology Event Note Prelim JARVIS note No diagnostic vegetation seen, suboptimal study.
--- NOTE | 2019-01-17 07:20 | Discharge Summary ---
<Josselyn Mcfadden - Last Filed: 01/17/19 14:46> - NOTES TO OUTPATIENT PROVIDER Notes to Outpatient Provider: He requires weekly CBC, BUN/Cr, CK with first set of labs 01/24 (while on Daptomycin) Orders not resulted at time of discharge: Pending orders 01/13/19 17:10 Culture,Urine [RM] Routine 01/15/19 05:26 Culture,Blood [BC] Routine Date of Encounter: 01/17/19 - Discharge Diagnosis (1) Nephrolithiasis Status: Acute (2) Acute kidney injury Status: Resolved (3) Diabetes Status: Acute Qualifiers: Diabetes mellitus type: type 2 Diabetes mellitus retirement insulin use: without manager terminal use Diabetes mellitus complication status: without complication Qualified Code(s): E11.9 - Type 2 diabetes mellitus without complications (4) Sepsis Status: Acute Qualifiers: Sepsis type: methicillin resistant Staphylococcus aureus Qualified Code(s): A41.02 - Sepsis due to Methicillin resistant Staphylococcus aureus (5) DVT prophylaxis Status: Acute (6) MRSA bacteremia Status: Acute Hospital course: Mr. Marques is a 73 year old male Discharge discussed with: patient, nurse, case management, cosmetic sales consultant - Time Spent with Patient Total time spent providing and/or coordinating discharge services: Time spent: Greater than 30 minutes (50 min) - Discharge Medications Prescriptions: New DAPTOmycin [Daptomycin] 800 mg IV DAILY #11 vial Continued Tamsulosin HCl [Flomax] 0.4 mg PO DAILY Atenolol/Chlorthalidone [Tenoretic 50 Tablet] 1 tab PO DAILY Multivit-Min/FA/Lycopen/Lutein [Centrum Silver Men Tablet] 1 tab PO DAILY Metformin HCl [Glucophage] 1,000 mg PO QAM Glimepiride [Amaryl] 4 mg PO QAM Home Medications: Atenolol/Chlorthalidone [Tenoretic 50 Tablet] 1 tab PO DAILY 01/14/19 [History] Glimepiride [Amaryl] 4 mg PO QAM 01/14/19 [History] Metformin HCl [Glucophage] 1,000 mg PO QAM 01/14/19 [History] Multivit-Min/FA/Lycopen/Lutein [Centrum Silver Men Tablet] 1 tab PO DAILY 01/14/19 [History] Tamsulosin HCl [Flomax] 0.4 mg PO DAILY 01/14/19 [History] DAPTOmycin [Daptomycin] 800 mg IV DAILY #11 vial 01/17/19 [Rx] Allergies/Adverse Reactions: Allergy/AdvReac Type Severity Reaction Status Date / Time zoster vaccine live Allergy Rash Verified 01/13/19 17:11 bee venom protein (honey bee) AdvReac Swelling Verified 01/13/19 17:12 of Lip/Tongue/Throat Tetanus Vaccines and Toxoid AdvReac Swelling Verified 01/13/19 17:11 of the Eye Date of admission: 01/13/19 21:00 Primary care physician: Gee Lyles MD Consults: 01/13/19 16:57 Consult to Urology [CONS] Routine Consulting Provider: Urology Ava Reason for Consult: kidney stones Call Completed: Yes 01/14/19 10:56 Consult to Infectious Diseases [CONS] Routine Consulting Provider: Infectious Disease Deanne Reason for Consult: staph aureus bacteremia Call Completed: Yes 01/17/19 07:51 Consult to Invasive Line Access Team [CONS] Routine Reason for Consult: Picc Line Insertion Line Type: PICC PICC line indications: termite treater helper Med/Antibiotic Time Notified: 07:51 Call Completed: Yes - Constitutional Vitals: Temp Pulse Resp BP Pulse Ox 98.2 F 91 16 138/74 96 01/17/19 10:11 01/17/19 10:11 01/17/19 10:11 01/17/19 10:11 01/17/19 10:11 - Patient Status Disposition: Home, Self-Care Condition: Good - Ambulatory Orders Ambulatory Orders: Basic Metabolic Panel [CHEM] Time Frame: 1 Week, Facility: [facility], Location: Lab Complete Blood Count [HEME] Time Frame: 1 Week, Facility: [facility], Location: Lab Creatine Kinase [CHEM] Time Frame: 1 Week, Facility: [facility], Location: Lab - Discharge Instructions Instructions: Daptomycin (Injection), Peripherally Inserted Central Catheters and Midline Catheters (DC) Follow Up With: Gee Lyles MD [Primary Care Provider] - Roque Molina MD [Partnered Physician] - Additional Instructions: -you have bacteria in your blood and an infection in your urinary tract -finish antibiotics to completion, you require weekly labs with your PCP -f/u with urology for stone removal 02/18/19. If you have further questions you may contact Dr Roque Molina's Urology office -thank you - Attending Attestation I examined this patient and my medical decision-making was reviewed with the Resident Physician Dr Lee. I agree with the documented findings, disposition and treatment plan as described except to the extent set forth below. Mr Marques was admitted with kidney stone s/p stent and MRSA bacteremia. He is medically stable for DC TO HOME and will go to [facility] for daily IV Dapto infusion to complete course awake, denies fevers, chills, n/v. no pain, no urinary ugency or hesitancy. He is eager for dc to home . discharge plan discussed in detail and all questions answered. gen- alert, awake,appears stated age cv- reg rate and rhythm, normal s1,s2, no murmurs appreciated lungs- ctabl, normal resp effort on room air abd- soft, non tender, non distended, + bs neuro- AAOx3 Sepsis 2/2 pyelonephritis and bacteremia- technically still meets with wbc 14.7 and HR in 90s at baseline however clinically greatly improved and stable for days -appreciate ID input throughout admit MRSA bacteremia JARVIS without vegetation - will dc on Dapto as per ID recs due to cost issues and he will have this infused daily at [facility] as arranged by [facility], cxs remain neg from 01/15, weekly labs as per ID Pyelopnephritis w Nephrolithiasis s/p L ureteral stent 01/14- as above, will get outpt stone extraction in 2-3 weeks and Urology to confirm how/when pt will be contacted regarding appt prior to dc time spent on dc 50 min <Ilia Lee - Last Filed: 01/17/19 15:40> - NOTES TO OUTPATIENT PROVIDER Notes to Outpatient Provider: Patient presented to ED on 01/13/19 for flank pain and chills. Hx of nephrolithiasis, diabetes, HTN. Was found on CT at another hospital to have L distal ureteral stones with proximal hydronephrosis. Admitted with SEPSIS 2/2 pyelonephritis. Blood cultures 01/13/19 grew MRSA and he is to be discharged to [facility] with IV Daptomycin for 14 days with day one being 01/15/19 He received a cystosocpy and L ureteral stent. Stone extraction to be completed in 2 weeks. Orders not resulted at time of discharge: Pending orders 01/13/19 17:10 Culture,Urine [RM] Routine 01/15/19 05:26 Culture,Blood [BC] Routine 01/17/19 04:00 Basic Metabolic Panel AM 0400 CBC [Complete Blood Count] [HEME] AM 0400 Magnesium AM 0400 Phosphorous AM 0400 01/17/19 13:00 Vancomycin,Trough Timed 01/18/19 04:00 Basic Metabolic Panel AM 0400 CBC [Complete Blood Count] [HEME] AM 0400 Magnesium AM 0400 Phosphorous AM 0400 01/19/19 04:00 Basic Metabolic Panel AM 0400 CBC [Complete Blood Count] [HEME] AM 0400 Magnesium AM 0400 Phosphorous AM 0400 01/20/19 04:00 Basic Metabolic Panel AM 0400 CBC [Complete Blood Count] [HEME] AM 0400 Magnesium AM 0400 Phosphorous AM 0400 Date of Encounter: 01/17/19 Time of Encounter: 09:00 - Discharge Diagnosis (1) Sepsis Priority: Primary Status: Acute Qualifiers: Sepsis type: methicillin resistant Staphylococcus aureus Qualified Code(s): A41.02 - Sepsis due to Methicillin resistant Staphylococcus aureus (2) Acute pyelonephritis Priority: Secondary Status: Acute (3) Enlarged prostate Priority: Secondary Status: Chronic Hospital course: Mr. Marques is a 73 year old male who presented to ED on 01/13/19 for flank pain and chills. Hx of nephrolithiasis, diabetes, HTN. Was found on CT at another hospital to have L distal ureteral stones with proximal hydronephrosis. He met SIRS criteria and was admitted with SEPSIS 2/2 pyelonephritis. blood cultures 01/13/19 grew MRSA and he is to be discharged to [facility] with IV Doxy for total of 14 days with day one being 01/15/19. He received a cystosocpy and L ureteral stent. stone extraction to be completed in 2 weeks. follow up with urology. - Time Spent with Patient Total time spent providing and/or coordinating discharge services: Date of admission: 01/13/19 21:00 Primary care physician: Gee Lyles MD Consults: 01/13/19 16:57 Consult to Urology [CONS] Routine Consulting Provider: Urology Ava Reason for Consult: kidney stones Call Completed: Yes 01/14/19 10:56 Consult to Infectious Diseases [CONS] Routine Consulting Provider: Infectious Disease Ava Reason for Consult: staph aureus bacteremia Call Completed: Yes Discharging clinician: Josselyn Mcfadden Anticipated date of discharge: 01/17/19 - Constitutional Vitals: Temp Pulse Resp BP Pulse Ox 98.0 F 98 16 136/85 93 01/17/19 06:28 01/17/19 06:28 01/17/19 06:28 01/17/19 06:28 01/17/19 06:28 General appearance: Present: A&O X 3 Exam: gen: no acute distress. appears younger than stated age skin: capilary refil <2 seconds upper and lower ext. b/l. good turgor. eyes: moist conjunctivae. no icterus cardiac: RRR no murmur respiratory: Distant lung sounds but no crackles or wheeze heard. psych: appropriate affect. answers questions appropriately. - Patient Status Functional capacity at discharge: independent ambulation Overall status at discharge: patient is progressing back to baseline - Diet and Activity Activity: increase activity as tolerated Diet: diabetic diet, low salt diet
--- NOTE | 2019-01-17 07:34 | Internal Med Progress Note ---
Hospitalist Progress Note - Encounter Date of Encounter: 01/17/19 - Exam Vitals: Temp Pulse Resp BP Pulse Ox 98.0 F 98 16 136/85 93 01/17/19 06:28 01/17/19 06:28 01/17/19 06:28 01/17/19 06:28 01/17/19 06:28 - Assessment and Plan (1) Sepsis Current Visit: Yes Status: Acute (2) Acute pyelonephritis Current Visit: Yes Status: Acute (3) Enlarged prostate Current Visit: Yes Status: Chronic - Time Spent with Patient Total time spent is greater than 50% in coordination of care (as documented) at patient's floor/unit and/or counseling patient: Internal Medicine: Result - Labs CBC & Chem 7: 01/16/19 04:45 01/16/19 04:45 Consult Discharge Plan - Plan Referrals: eGe Lyles MD [Primary Care Provider] - (1) Sepsis Qualifiers: Sepsis type: methicillin resistant Staphylococcus aureus Qualified Code(s): A41.02 - Sepsis due to Methicillin resistant Staphylococcus aureus
[2019-01-17] MEDS ORDERED: Lidocaine -MPF 1% 5 ML AMPUL INFILT ONE (07:51)
[2019-01-17 07:53] LABS: BUN/Creatinine Ratio 18 (6-26); Blood Urea Nitrogen 18 mg/dL (8-23); Calcium 8.4 mg/dL (8.6-10.3); Carbon Dioxide 25 mEq/L (23-29); Chloride 102 mEq/L (98-107); Glucose 147 mg/dL (70-105); Magnesium 1.6 mg/dL (1.6-2.6); Osmolality,Calculated 291 (280-300); Phosphorous 2.5 mg/dL (2.7-4.5); Potassium 3.5 mEq/L (3.5-5.1); Sodium 138 mEq/L (136-145); eGFR For African Americans > 60 (> 60); eGFR For Non-African Americans > 60 (> 60)
[2019-01-17 07:55] LABS: Basophils # 0.1 K/mcL (0.0-0.2); Basophils % 0.7 %; Eosinophils # 0.2 K/mcL (0.0-0.6); Eosinophils % 1.4 %; Hematocrit 42.3 % (37.5-50.1); Hemoglobin 13.9 g/dL (12.9-16.9); Immature Granulocytes % 0.9 % (0-4); Lymphocytes # 3.2 K/mcL (0.6-4.6); Lymphocytes % 21.6 %; Mean Corpuscular HGB Conc 32.9 g/dL (31.6-35.5); Mean Corpuscular Hemoglobin 28.4 pg (28.0-33.3); Mean Corpuscular Volume 86.3 fL (83.0-100.0); Mean Platelet Volume 10.1 fL (9.4-12.4); Monocytes # 1.5 K/mcL (0.0-1.3); Monocytes % 10.1 %; Neutrophils # 9.6 K/mcL (1.6-8.9); Platelet Count 243 K/mcL (140-400); Red Cell Distribution Width 13.5 % (11.5-14.5); Segmented Neutrophils % 65.3 %; White Blood Count 14.7 K/mcL (4.3-11.1)
[2019-01-17] MEDS: Insulin LISPRO 300 UNITS/3 ML VIAL SQ SCH ×2 (08:18→13:01)
[2019-01-17] MEDS: Aspirin 81 MG TAB.CHEW PO SCH (08:19)
[2019-01-17 10:41] VITALS: BP 138/74
--- NOTE | 2019-01-17 11:11 | Infectious Disease Progress No ---
ID Progress Note Date of Encounter: 01/17/19 Time of Encounter: 11:12 - Subjective Subjective: Patient seen and examined. No acute events noted overnight. Patient states overall he feels pretty well this morning. Denies fevers, chills or rigors. Denies chest pain, shortness of breath, or cough. Denies nausea, vomiting, diarrhea, or constipation. Denies abdominal pain. Denies back or flank pain. Does report some dysuria, improved. Denies oral thrush or skin rashes. Patient unable to afford home vancomycin and will require Q12H dosing which is not amendable to infusion center administration. Will switch to IV Daptomycin for ease of administration at the infusion center. Patient agreeable. - Objective CBC & Chem 7: 01/17/19 07:04 01/17/19 07:04 - Exam Vitals: Temp Pulse Resp BP Pulse Ox 98.2 F 91 16 138/74 96 01/17/19 10:11 01/17/19 10:11 01/17/19 10:11 01/17/19 10:11 01/17/19 10:11 Exam: Head: Atraumatic, normal inspection, normocephalic. Eye: EOMI, PERRLA, no scleral icterus noted. No subconjunctival hemorrhage noted. ENT: Mucous membranes moist. No odontogenic infection noted. Neck: Normal inspection, no meningismus. Respiratory: Clear to auscultation. No rales, respiratory distress, rhonchi, or wheezes noted. Cardiovascular: Regular rate and rhythm, S1 and S2 audible. No murmurs, rubs, or gallops. GI: Soft, nondistended, normal bowel sounds. Extremities:No joint swelling, pedal edema, or tenderness noted. Back: Normal inspection. No vertebral tenderness noted. No CVA tenderness noted. Neurological: Alert, oriented 3, no focal deficits. Psychiatric: normal affect, normal mood. Skin: Dry, intact, warm. Normal color. No rashes. No endocarditis stigmata noted. - Assessment and Plan (1) Sepsis Status: Acute The patient has three sepsis criteria. Likely secondary to pyelonephritis and bacteremia. WBC back up a little overnight, likely secondary to procedure yesterday. Tachycardia resolved. Afebrile. Blood cultures drawn at [facility] are postitive 07/11 for GPC. Blood cultures drawn 01/13/19 at [facility] are positive 2/2 for MRSA. Repeat blood cultures drawn 01/15/19 are NGTD 2 sets. Qualifiers: Sepsis type: methicillin resistant Staphylococcus aureus Qualified Code(s): A41.02 - Sepsis due to Methicillin resistant Staphylococcus aureus SNOMED Code(s): 62581785 (2) Bacteremia Status: Acute Causative organism: MRSA. Source: Unclear. Index of suspicion that the UTI and kidney stones are actually an incidental finding and are not related to the MRSA bacteremia since the urine culture from [facility] is not growing anything at this point. The patient does not have any open sores or lesions. He is not an IV drug user. He does report several mosquito bites that he has been scratching, but denies having any of them appear infected and I do not see any on exam, but the patient is technically immunocompromised due to asplenia. Blood cultures drawn 01/13/19 at [facility] +1 out of 2 sets for GPC's. Blood cultures drawn 01/13/19 at [facility] are +2 out of 2 sets for MRSA. Repeat blood cultures drawn 01/15/19 are NGTD x 2 sets. No endocarditis stigmata noted. No prosthetic hardware or pacemaker. Rheumatoid factor elevated. Transthoracic echocardiogram negative for valvular vegetations. JARVIS negative. The patient has one major and 2 minor Modified Trinh's criteria. Currently on IV Vancomycin. SNOMED Code(s): 9450704 (3) Acute pyelonephritis Status: Acute Ruled out. The patient reported left flank pain on admission, but no pyelonephritis noted on CT and urine culture non-revealing. Urology consulted. Status post cystoscopy with left ureteral stent placement 01/14/[address] Molina. Urine culture was mixed organisms. . SNOMED Code(s): 67720651 (4) Acute kidney injury Status: Resolved Likely secondary to sepsis and hydronephrosis. Serum creatinine normalized. Continue to trend. Dose-adjust medications and avoid nephrotoxins as able. SNOMED Code(s): 01774293, 84562821 (5) Nephrolithiasis Status: Acute Noted on CT scan at [facility]. Urology consult. Status post cystoscopy with left ureteral stent placement 01/14/19. Planned for staged removal of kidney stone at some point. SNOMED Code(s): 23869899 (6) Enlarged prostate Status: Chronic Follows with [facility]. SNOMED Code(s): 658756674 (7) Diabetes Status: Acute Recommend aggressive glucose monitoring and control. Management per the primary team. Qualifiers: Diabetes mellitus type: type 2 Diabetes mellitus keno terminal operator insulin use: without keno terminal operator use Diabetes mellitus complication status: without complication Qualified Code(s): E11.9 - Type 2 diabetes mellitus without complications SNOMED Code(s): 09889297 - Recommendations Recommendations: Await repeat blood cultures. Discontinue Vancomycin. Start Daptomycin 800mg IV daily. Check baseline CK level. Duration of treatment depends on the clinical picture, but likely 14 days from the first set of negative blood cultures. Will plan to treat through 01/28/19, then discontinue. Monitor renal function and for drug toxicity and dose adjust antibiotics. Contact precautions per hospital policy. support services coordinator to assist with discharge planning. Consult VAT for PICC Line placement. Will need weekly CBC, BUN/Cr, CK. Will need weekly IV care per protocol. No ID follow-up needed, but will be glad to monitor outpatient labs and will schedule the patient if needed. Consult Discharge Plan - Plan Instructions: Daptomycin (Injection), Peripherally Inserted Central Catheters and Midline Catheters (DC) Additional Instructions: -you have bacteria in your blood and an infection in your urinary tract -finish antibiotics to completion, you require weekly labs with your PCP -f/u with urology for stone removal 02/18/19. If you have further questions you may contact Dr Roque Molina's Urology office -thank you Referrals: Roque Molina MD [Partnered Physician] - Gee Lyles MD [Primary Care Provider] - Prescriptions: DAPTOmycin [Daptomycin] 800 mg IV DAILY #11 vial - Attending Attestation I have personally performed a face to face evaluation on this patient. I have reviewed and agree with the care plan. History and Exam by me shows: Assessment and plan: 1.Sepsis 2.MRSA bacteremia 2/2 sets positive 01/13/2019 source not clear 3.Acute pyelonephritis causative organism not clear 4.Acute kidney injury 5.Nephrolithiasis 6.Large prostate 7.Diabetes mellitus type 2 Recommendations: JARVIS negative for endocarditis By definition this is on complicated MRSA bacteremia so we will treat with vancomycin for 2 weeks from first negative culture DC Rocephin Continue contact precautions Monitor for drug toxicity
[2019-01-17] MEDS ORDERED: DAPTOmycin 500 MG in 0.9 % Sodium Chloride 100 ML IVPB SCH (12:00)
[2019-01-17 13:34] LABS: Creatine Kinase 114 Units/L (30-223)
[2019-01-17] MEDS ORDERED: Aminoglycoside Consult 1 EACH MC ONE (14:37)
== END 2019-01-17 14:38 | disposition home or self-care (01) | DRG 854 ==
LOC: 3ANU → SUATTDRO 21:00
PROVIDERS: ADMIT Internal Medicine; ATTEND Internal Medicine